=== PATIENT | female | born 1955 | race African-American/Black ===

== ENCOUNTER 2021-02-07 10:04 | Outpatient (CLI) | payer MEDICARE | END 2021-02-07 10:05 | disposition home or self-care (01) | LOC: CSHNM 10:04 | PROVIDERS: ATTEND Internal Medicine | DX: R10.13 Epigastric pain (principal); R19.7 Diarrhea, unspecified; D12.6 Benign neoplasm of colon, unspecified; K83.9 Disease of biliary tract, unspecified | CPT/HCPCS: 78227; A9537 ==